=== PATIENT | male | born 1975 | race Caucasian/White ===

== ENCOUNTER 2017-09-18 11:08 | Emergency (ER) | payer SELFPAY ==
[~2017-09-18] VITALS: Ht 185.4 cm; Wt 74.8 kg
[~2017-09-18 11:08] MED LIST: ANAPROX DS550 MG PO; ANUSOL-HC2.5% RC; AUGMENTIN 875 M1 TAB PO; AUGMENTIN 875875 MG PO; AUGMENTIN XR 101 TER PO; CIPRO500 MG PO; CIPRODEX 0.3%-7.5 ML OT; CLARITIN10 MG PO; Carafate1 GM/10 ML PO; DOXYCYCLINE MO100 MG PO; FLEXERIL10 MG PO; FLEXERIL5 MG PO; KEFLEX500 MG PO; MOTRIN800 MG PO; NKHM; SEPTRA DS 800 M1 TAB PO; ULTRAM50 MG PO; VICODIN 5/500 505 MG PO; VICODIN ES 7501 TAB PO
[2017-09-18] MEDS ORDERED: FLONASE ALLERG9.9 ML NAS (11:38)
[2017-09-18] MEDS ORDERED: CLARITIN10 MG PO (11:38)
[2017-09-18] MEDS ORDERED: CHERATUSSIN AC118 M1 PO (11:38)
[2017-09-18] MEDS ORDERED: PREDNISONE10 MG PO (11:38)
== END 2017-09-18 13:51 | disposition home or self-care (01) ==
LOC: ED 11:08
DX: J01.90 Acute sinusitis, unspecified (principal)